=== PATIENT | female | born 1935 | race Caucasian/White ===

== ENCOUNTER 2018-04-18 08:56 | Day surgery (SDC) | payer MEDICARE, OTHER ==
[2018-04-18] VITALS (9 sets, daily range): BP systolic 95–131; BP diastolic 46–73; PULSE 54–99; RESP 14–29; Ht 167.6 cm; Wt 79.1 kg
[~2018-04-18] VITALS: Ht 167.6 cm; Wt 79.1 kg
[2018-04-18] MEDS ORDERED: AMIO400T5 PO (09:53)
[2018-04-18] MEDS ORDERED: AMLO1CAP10 PO (09:54)
[2018-04-18] MEDS ORDERED: APIX5TAB PO (09:55)
[2018-04-18] MEDS ORDERED: CARV12.579 PO (09:55)
[2018-04-18] MEDS ORDERED: METF500T24 PO (09:56)
[2018-04-18] MEDS ORDERED: SERT25TA PO (09:56)
[2018-04-18] MEDS ORDERED: ZOC10 PO (09:57)
--- NOTE | 2018-04-18 11:21 | PREAC ---
Date/Time of Note Date/Time of Note DATE: 04/18/18 TIME: 11:20 Anesthesia Eval and Record Evaluation Time Pre-Procedure Interview DATE: 04/18/18 TIME: 11:20 Age 82 Sex female NPO: 8 hrs Preoperative diagnosis AFIB Planned procedure YENI with Cardioversion Past Medical History Past Medical History: Includes Cardio: HTN, Dyslipidemia, Arrythmia Endo: Diabetes GI: Obesity Surgery & Anesthesia Issues No known issue Meds Anticoagulation: No Beta Reji within 24 hr: No Reason Beta Reji not given: Pt. not on B-Reji Reported Medications Simvastatin (Simvastatin) 10 Mg Tablet, 10 MG PO DAILY, #30 TAB 04/18/18 Sertraline Hcl* (Zoloft*) 25 Mg Tablet, 25 MG PO DAILY, #30 TAB 04/18/18 Metformin Hcl* (Metformin Hcl*) 500 Mg Tablet, 500 MG PO WITH BREAKFAST DINNE, #60 TAB 04/18/18 Carvedilol* (Carvedilol*) 12.5 Mg Tablet, 12.5 MG PO BID, #60 TAB 04/18/18 Apixaban* (Eliquis*) 5 Mg Tablet, 5 MG PO BID, TAB 04/18/18 Amlodipine Besylate/Benazepril (Amlodipine-Benazepril 5-20 mg) 1 Each Capsule, 1 EACH PO DAILY, CAP 04/18/18 Amiodarone Hcl* (Amiodarone Hcl*) 400 Mg Tablet, 400 MG PO BID, TAB 04/18/18 Meds reviewed: Yes Allergies Coded Allergies: Penicillins (Verified Allergy, Unknown, 04/18/18) Allergies Reviewed: Yes Labs/Studies Labs Reviewed: Reviewed by anesthesiologist Result Diagram: 04/18/18 1010 04/18/18 1010 Laboratory Tests 04/18/18 10:10 test: Negative Studies: ECG Pre-procedure Exam Last vitals Vital Signs Date Temp Pulse Resp B/P (MAP) Pulse Ox O2 O2 Flow FiO2 Time Delivery Rate 04/18/18 98.6 99 18 131/73 97 10:00 (92) Airway: Adequate mouth opening, Adequate thyromental dist Mallampati: Mallampati II Teeth: Normal Lung: Normal Heart: Normal ASA Physical Status ASA physical status: 3 Emergency: None Planned Anesthetic General/MAC: Mask Pre-operative Attestations Prior to commencing anesthesia and surgery, the patient was re-evaluated, there was verification of: *The patient's identity *The results of appropriate recent lab work and preoperative vital signs *The above evaluation not changing prior to induction *Anesthetic plan, risk benefits, alternative and complications discussed with patient/family; questions answered; patient/family understands, accepts and wishes to proceed. SONYA MILLER Apr 18, 2018 11:21
[2018-04-18] MEDS ORDERED: PROPOFOL 40 ML ONE (11:26)
--- NOTE | 2018-04-18 11:47 | SIPON ---
Date/Time of Note Date/Time of Note DATE: 04/18/18 TIME: 11:44 Operative Report Preoperative Diagnosis 1.AF Postoperative Diagnosis 1.successful DCCV from AF to SR Operation/Procedure Performed 1.YENI 2.DCCV Surgeon see signature line shampoo assistant 1.Korin Anesthesia: MAC Estimated blood loss: none Transfusion Required none Specimen none Grafts/Implants none Complications none KANU SNIDER Apr 18, 2018 11:47
[2018-04-18] MEDS ORDERED: FENTAnyl 50 MCG/ML VIAL IV PRN (12:00)
--- NOTE | 2018-04-18 12:10 | NUR ---
RECEIVED FROM CATH. LAB. S/P YENI. IV INFUSING IN LT AC 3 20 ANGIOCATH. DENIES PAIN AT PRESENT.
--- NOTE | 2018-04-18 12:35 | NUR ---
REPORT GIVEN TO AUBREY NOLASCO
--- NOTE | 2018-04-18 12:45 | NUR ---
TRANSPORTED TO [facility] ACCOMPANIED BY [facility] [place] IN STABLE CONDITION. DENIES PAIN AT PRESENT. IV PATENT.
--- NOTE | 2018-04-18 13:51 | CARRPT ---
DATE OF PROCEDURE: 04/18/2018 TYPE OF PROCEDURE: 1. Transesophageal echo. 2. Direct current cardioversion. Atrial fibrillation, sinus rhythm. ATTENDING PHYSICIAN: Kanu Barboza MD REFERRING PHYSICIAN: Juliette Aguilar MD INDICATION: Atrial fibrillation. TYPE OF ANESTHESIA: MAC under direction of anesthesiologist at bedside. DESCRIPTION OF PROCEDURE: After informed consent was obtained, the patient was brought to [facility] cardiology department where she was connected to continuous telemetry monitoring, continuous blood pressure cuff cycling every 3 minutes and continuous oxygen saturation monitoring. The patient had a bite block placed in her mouth and received propofol and MAC anesthesia in order to achieve adequate local anesthesia by anesthesiologist at bedside. The patient had her esophagus int ubated with transesophageal probe and using multiplanar imaging and color flow Doppler interrogation, the patient's intracardiac structures were adequately interrogated and the probe was removed. Subse quently, at this time, the patient had already had pacer pads placed on her torso, anterior, posterio r distribution and received 100 shock in synch mode of 100 joules returning her to sinus rhythm. The patient was allowed to wake from her anesthetized state. This completed the procedure. There were no noted complications. FINDINGS: Transesophageal echo revealed no definite findings of left atrial or left atrial appendage thrombus. Left atrium velocity approximately 40 cm per second. No spontaneous contrast noted in le ft atrium or left atrial appendage. Normal LV function was noted with no signs of intracardiac sourc e of thrombus. Direct current cardioversion. The patient received 1 shock in synch mode at 100 joules, successfully returning her to sinus rhythm. IMPRESSION: 1. No definite findings of left atrial appendage or other intracardiac source of thrombus prior to d irect current cardioversion. 2. Successful direct current cardioversion to sinus rhythm from atrial fibrillation with a 100 joule shock x1. RECOMMENDATIONS: 1. At this time, patient will be allowed to wake from anesthetized state and will begin to take p.o. Once the patient is taking full p.o. and has fully recovered from anesthetized state, she will be c leared for discharge. 2. Patient will follow up with Dr. Aguilar. 3. Patient should be continued on her baseline medications including carvedilol, amiodarone and Eliq uis. Dictated By: KANU FERREIRA/LUISITO Conf#: [id number] DID#: [id number] CC: JULIETTE AGUILAR MD;*EndCC*
--- NOTE | 2018-04-18 15:06 | NUR ---
RE: DISCHARGE PATIENT DISCHARGED HOME. ALL DISCHARGE INSTRUCTIONS EXPLAINED AND PROVIDED TO PATIENT AND FAMILY. IV REMOVED. PATIENT ABLE TO TOLERATE FLUIDS AND SOLIDS WITHOUT ANY DIFFICULTY. PATIENT VERBALIZED READINESS FOR DISCHARGE AND UNDERSTANDING OF DISCHARGE INSTRUCTIONS.
--- NOTE | 2018-04-19 14:35 | PAC ---
Date/Time of Note Date/Time of Note DATE: 04/19/18 TIME: 14:35 Post-Anesthesia Notes Post-Anesthesia Note Last documented vital signs Vital Signs Date Temp Pulse Resp B/P (MAP) Pulse Ox O2 O2 Flow FiO2 Time Delivery Rate 04/18/18 98.2 58 18 101/53 92 Room Air 12:52 (69) Activity: WNL Respiratory function: WNL Cardiovascular function: WNL Mental status: Baseline Pain reasonably controlled: Yes Hydration appropriate: Yes Nausea/Vomiting absent: Yes SONYA MILLER Apr 19, 2018 14:35
== END 2018-04-18 15:01 | disposition home or self-care (01) ==
LOC: SDS 08:56
PROVIDERS: ATTEND Internal Medicine
DX: I48.91 Unspecified atrial fibrillation (principal); I10 Essential (primary) hypertension; E78.5 Hyperlipidemia, unspecified; E11.9 Type 2 diabetes mellitus without complications; I49.9 Cardiac arrhythmia, unspecified
CPT/HCPCS: 71045; 80048; 82962; 85025; 85610; 85730; 92960; 93005; 93312; 93320; 93325